=== PATIENT | male | born 1965 | race Caucasian/White ===

== ENCOUNTER 2016-10-09 17:03 | Inpatient (IN) | payer MEDICARE ==
[~2016-10-09] VITALS: Ht 180.3 cm; Wt 110.0 kg
[2016-10-09] MEDS ORDERED: SODIUM CHLORIDE 0.9% 1,000ML IVBOLUS ONE (18:00)
[2016-10-09 18:34] LABS: BLOOD UREA NITROGEN 16 mg/dL (7-18)
[2016-10-09 18:40] LABS: IS PT STATUS REG ER OR PRE ER? YES
[2016-10-09] MEDS ORDERED: OMNIPAQUE 350 MG/ML, 100ML BOTTLE ONE (20:19)
[2016-10-09] MEDS ORDERED: TEMAZEPAM 15 MG CAPSULE PO PRN (22:30)
[2016-10-09] MEDS ORDERED: ONDANSETRON ODT 4 MG PO PRN (22:30)
[2016-10-09] MEDS ORDERED: ACETAMINOPHEN 325 MG TABLET PO PRN (22:30)
[2016-10-09] MEDS ORDERED: DOCUSATE 100 MG CAPSULE PO PRN (22:30)
[2016-10-10 00:04] VITALS: BP 133/88
[2016-10-10 00:19] LABS: IS PT STATUS REG ER OR PRE ER? NO
[2016-10-10] MEDS: ENOXAPARIN 40 MG/0.4 ML SQ SCH (00:30)
[2016-10-10] MEDS: NICOTINE 21 MG/24 HR PATCH.TD24 TD SCH (00:30)
[2016-10-10] MEDS: FUROSEMIDE 40 MG/4 ML IV SCH ×2 (00:30→08:26)
[2016-10-10 03:11] VITALS: BP 122/74
[2016-10-10 05:07] LABS: BLOOD UREA NITROGEN 15 mg/dL (7-18)
[2016-10-10 05:14] LABS: IS PT STATUS REG ER OR PRE ER? NO
[2016-10-10 07:30] VITALS: BP 153/89
[2016-10-10 11:14] LABS: IS PT STATUS REG ER OR PRE ER? NO
[2016-10-10] MEDS ORDERED: LORazepam 1MG TABLET PO PRN (12:30)
[2016-10-10 15:20] VITALS: BP 124/82
[2016-10-10 15:38] LABS: DAU SCREEN DISCLAIMER
[2016-10-10 19:54] VITALS: BP 120/78
[2016-10-11] MEDS: ENOXAPARIN 40 MG/0.4 ML SQ SCH (00:21)
[2016-10-11] MEDS: NICOTINE 21 MG/24 HR PATCH.TD24 TD SCH (00:22)
[2016-10-11 01:59] VITALS: BP 135/90
[2016-10-11 06:39] LABS: ASPARTATE AMINO TRANSFERASE 16 U/L (15-37); BLOOD UREA NITROGEN 17 mg/dL (7-18)
[2016-10-11 06:57] VITALS: BP 119/84
[2016-10-11] MEDS ORDERED: REGADENOSON 0.4 MG/5 ML SYRINGE ONE (08:41)
[2016-10-11] MEDS ORDERED: FUROSEMIDE 40 MG TABLET PO SCH (09:00)
[2016-10-11] MEDS ORDERED: FUROSEMIDE 40 MG/4 ML IV SCH (09:00)
[2016-10-11] MEDS ORDERED: LISINOPRIL 5 MG TABLET PO SCH (12:30)
[2016-10-11] MEDS ORDERED: ASPIRIN 81 MG TABLET EC PO SCH (12:30)
[2016-10-11] MEDS ORDERED: METOPROLOL TARTRATE 25 MG TABLET PO SCH (12:30)
[2016-10-11 14:00] VITALS: BP 134/80
[2016-10-11] MEDS ORDERED: SPIRONOLACTONE 25 MG TABLET PO SCH (15:00)
[2016-10-11 20:22] VITALS: BP 130/87
[2016-10-11] MEDS ORDERED: ATORVASTATIN 40 MG TABLET PO SCH (21:00)
[2016-10-12] MEDS ORDERED: SPIRONOLACTONE 25 MG TABLET PO SCH (09:00)
== END 2016-10-12 00:10 | disposition left against medical advice (07) | DRG 280 ==
LOC: ED 19:00 → EDIP 21:53 → 5SO 23:51
DX: I21.4 Non-ST elevation (NSTEMI) myocardial infarction (principal); I50.41 Acute combined systolic (congestive) and diastolic (congestive) heart failure; E44.1 Mild protein-calorie malnutrition; J84.9 Interstitial pulmonary disease, unspecified; J98.11 Atelectasis; I42.0 Dilated cardiomyopathy; F15.10 Other stimulant abuse, uncomplicated; I11.0 Hypertensive heart disease with heart failure; E66.9 Obesity, unspecified; Z68.33 Body mass index [BMI] 33.0-33.9, adult; F17.200 Nicotine dependence, unspecified, uncomplicated; I34.0 Nonrheumatic mitral (valve) insufficiency; M06.9 Rheumatoid arthritis, unspecified; Z91.19 Patient's noncompliance with other medical treatment and regimen; Z71.6 Tobacco abuse counseling; R59.0 Localized enlarged lymph nodes
CPT/HCPCS: 36415; 71010; 71020; 71275; 78452; 80048; 80053; 80061; 80307; 82040; 83036; 83735; 83880; 84100; 84439; 84443; 84484; 85025; 85379; 93005; 93017; 93970; C8929; J1650; J1940; J2785; Q9967; A9502; C9898